=== PATIENT | female | born 1995 | race Caucasian/White ===

== ENCOUNTER 2019-05-29 11:25 | Outpatient (CLI) | payer OTHER ==
--- NOTE | 2019-05-29 14:23 | Ultrasound Report ---
Reason: TWIN , ANTEPARTUM UNSPEC TRI, F/U EXAM 04/19/19 Procedure Date: 05/29/2019 Accession Number: [id number] / [id number] Procedure: US - OB F/U or Repeat CPT Code: Final Report FULL RESULT: EXAM: FOLLOW-UP OBSTETRICAL ULTRASOUND - TWINS EXAM DATE: 05/29/2019 12:50 PM. CLINICAL HISTORY: TWIN , ANTEPARTUM UNSPEC TRI, F/U EXAM 04/19/19. COMPARISON: [facility] [place], [place], [place] ultrasound report 04/19/2019. Prior outside images currently unavailable. TECHNIQUE: Real-time sonographic evaluation of the fetus performed by the event marketing manager. Multiple retail sales representative static images were saved for review. DATING: Established EGA 27 weeks, 0 days with ADRIENNE 08/28/2019 based on assigned dating. EGA 26 weeks, 6 days with ADRIENNE 08/29/2019 based on current ultrasound. GENERAL EVALUATION Dichorionic/diamniotic twin . TWIN A: Cardiac activity: 144 bpm. movement: Visualized. Presentation: Cephalic. Placenta: Posterior position. Amniotic fluid: Normal. MVP 5.9 cm. ANSLEY 16.6 cm. BIOMETRY Bi-Parietal Diameter (BPD): 7 cm, 28 weeks, 1 day Head Circumference (HC): 25.4 cm, 27 weeks, 4 days Abdominal Circumference (AC): 20.5 cm, 25 weeks, 0 days Femur Length (FL): 4.9 cm, 26 weeks, 3 days Composite gestational age 25 weeks, 2 days. Estimated Weight: 873 g, 8.7 th percentile for 27 weeks, 0 days. ANATOMY Nose/lips, profile and cavum septum appear within normal limits. TWIN B: Cardiac activity: 155 bpm. movement: Visualized. Presentation: Breech Placenta: Posterior position. Amniotic fluid: Normal. MVP 5.4 cm. ANSLEY 14.5 cm. BIOMETRY Bi-Parietal Diameter (BPD): 6.8 cm, 27 weeks, 2 days Head Circumference (HC): 25.5 cm, 27 weeks, 5 days Abdominal Circumference (AC): 21.5 cm, 26 weeks, 0 days. Femur Length (FL): 4.9 cm, 26 weeks, 4 days. Composite gestational age 25 weeks, 6 days. Estimated Weight: 940 g, 19.5 th percentile for 27 weeks, 0 days. ANATOMY No abnormality evident on limited views. MATERNAL STRUCTURES No uterine or adnexal abnormality evident. IMPRESSION: 1. Dichorionic/diamniotic twin intrauterine with gestational age 27 weeks, 0 days based on assigned dating. 2. Twin A: - Estimated weight for twin A is at 8.7th percentile relative to assigned dating. anatomy that was not optimally seen per prior outside report appears unremarkable on present exam. 3. Twin B: - Estimated weight at 19.5th percentile relative to assigned dating. 4. EFW difference 7%, favoring Twin B. Twin A is below 10th percentile relative to assigned dating. Recommend followup growth ultrasound. RADIA
== END 2019-05-29 11:26 | disposition home or self-care (01) ==
LOC: DI 11:25
PROVIDERS: ATTEND Obstetrics & Gynecology
DX: O30.042 Twin pregnancy, dichorionic/diamniotic, second trimester (principal); Z3A.27 27 weeks gestation of pregnancy
CPT/HCPCS: 76816

== ENCOUNTER 2019-05-30 08:22 | Outpatient (CLI) | payer OTHER ==
[2019-05-30 09:45] LABS: HGB - HEMOGLOBIN 10.8 g/dL (12.0-16.0); MEAN CORPUSCULAR HEMOGLOBIN 32.3 pg (27.0-31.0); MEAN CORPUSCULAR HGB CONC 33.9 g/dL (32.0-36.0); MEAN CORPUSCULAR VOLUME 95.5 fL (81.0-99.0); RED BLOOD COUNT 3.34 10^6/uL (4.20-5.40); WHITE BLOOD COUNT 9.3 x10^3/uL (4.8-10.8)
== END 2019-05-30 08:23 | disposition home or self-care (01) ==
LOC: LAB 08:22
PROVIDERS: ATTEND Obstetrics & Gynecology
DX: O30.009 Twin pregnancy, unspecified number of placenta and unspecified number of amniotic sacs, unspecified trimester (principal); Z3A.00 Weeks of gestation of pregnancy not specified
CPT/HCPCS: 36415; 82950; 85027; 86850

== ENCOUNTER 2019-06-06 07:31 | Outpatient (CLI) | payer OTHER | END 2019-06-06 07:32 | disposition home or self-care (01) | LOC: LAB 07:31 | PROVIDERS: ATTEND Obstetrics & Gynecology | DX: O99.810 Abnormal glucose complicating pregnancy (principal); Z3A.00 Weeks of gestation of pregnancy not specified | CPT/HCPCS: 36415; 82951; 82952 ==

== ENCOUNTER 2019-07-25 10:15 | Outpatient (CLI) | payer OTHER ==
[2019-07-25 21:35] LABS: TRICHOMONAS VAGINALIS DNA NEGATIVE (NEGATIVE)
== END 2019-07-25 23:59 | disposition home or self-care (01) ==
LOC: LAB.R 10:15
PROVIDERS: ATTEND Obstetrics & Gynecology
DX: Z36.85 Encounter for antenatal screening for Streptococcus B (principal)
CPT/HCPCS: 87491; 87591; 87661; 87797

== ENCOUNTER 2019-07-27 12:28 | Outpatient (CLI) | payer OTHER, MEDICAID ==
--- NOTE | 2019-07-27 15:38 | Ultrasound Report ---
Reason: GROWTH RETARDATION Procedure Date: 07/27/2019 Accession Number: [id number] / [id number] Procedure: US - OB F/U or Repeat CPT Code: Final Report FULL RESULT: EXAM: FOLLOW-UP OBSTETRICAL ULTRASOUND EXAM DATE: 07/27/2019 01:45 PM. CLINICAL HISTORY: GROWTH RETARDATION. COMPARISON: OB F/U OR REPEAT 05/29/2019 11:39 AM. TECHNIQUE: Real-time sonographic evaluation of the fetus performed by the armature tester. Multiple support representative static images were saved for review. DATING: Established EGA 35 weeks 3 days with ADRIENNE 08/28/2019 based on stated by provider. ADRIENNE 08/29/2019 based on ultrasound . EGA 32 weeks 5 days with ADRIENNE 09/09/2019 based on the current ultrasound. GENERAL EVALUATION Twin . Fetus a maternal left. Fetus B maternal right. Cardiac activity: 165 fetus A, 168 fetus B. movement: Visualized. Presentation: Cephalic inferior. Placenta: Posterior position. Amniotic fluid: Subjectively normal. MVP 4.0 cm fetus a and 4.5 cm fetus B. BIOMETRY fetus A, maternal left Bi-Parietal Diameter (BPD): 8.68 cm, 35 weeks 0 days Head Circumference (HC): 31.23 cm, 35 weeks 0 days Abdominal Circumference (AC): 27.38 cm, 31 weeks 3 days Femur Length (FL): 6.45 cm, 33 weeks 2 days Estimated Weight: 2023 g, 2.6 percentile for clinical age. BIOMETRY fetus B Bi-Parietal Diameter (BPD): 8.25 cm, 33 weeks 1 day Head Circumference (HC): 31.73 cm, 35 weeks 5 days Abdominal Circumference (AC): 29.05 cm, 33 weeks 0 days Femur Length (FL): 6.51 cm, 33 weeks 4 days Estimated weight 2205 g, 7.8 percentile. Cord Doppler: Fetus a systolic diastolic ratio 2.41-2.48. IMPRESSION: 1. Twin viable intrauterine . Small for gestational age, using clinical age of 35 weeks 3 days. Fetus A 2.6 percentile. Fetus B 7.8 percentile. RADIA
--- NOTE | 2019-07-27 15:42 | Ultrasound Report ---
Reason: IUGR Procedure Date: 07/27/2019 Accession Number: [id number] / [id number] Procedure: US - OB Biophysical Profile CPT Code: Final Report FULL RESULT: EXAM: BIOPHYSICAL PROFILE EXAM DATE: 07/27/2019 02:22 PM. CLINICAL HISTORY: IUGR. Dichorionic diamniotic twin . COMPARISON: None. TECHNIQUE: Real-time sonographic evaluation of the fetus performed by the compressor engineer. Multiple teleservices representative static images were saved for review. DATING: Established EGA 35 weeks 3 days with ADRIENNE 08/28/2019. GENERAL EVALUATION Twin A Cardiac activity: 130 bpm. movement: Visualized. Presentation: Cephalic. Placenta: position. No evidence for previa or abruption. Amniotic fluid: Subjectively normal MVP 4.3 cm. BIOPHYSICAL PROFILE Breathing = 2 Movement = 2 Tone = 2 Amniotic Fluid = 2 Total 10/13 Twin B Cardiac activity: 152 bpm. movement: Visualized. Presentation: Cephalic. Placenta: Posterior position. No evidence for previa or abruption. Amniotic fluid: Normal. MVP 4.1 cm. BIOPHYSICAL PROFILE Breathing = 2 Movement = 2 Tone = 2 Amniotic Fluid = 2 Total 10/13 IMPRESSION: 1. Biophysical profile score 8 of 8 for both fetus A and fetus B. PERLITA
== END 2019-07-27 12:29 | disposition home or self-care (01) ==
LOC: DI 12:28
PROVIDERS: ATTEND Obstetrics & Gynecology
DX: O30.043 Twin pregnancy, dichorionic/diamniotic, third trimester (principal); O36.5930 Maternal care for other known or suspected poor fetal growth, third trimester, not applicable or unspecified; Z3A.35 35 weeks gestation of pregnancy
CPT/HCPCS: 76816; 76819

== ENCOUNTER 2019-08-03 09:50 | Outpatient (CLI) | payer OTHER, MEDICAID ==
[2019-08-03 10:08] VITALS: BP 128/75
--- NOTE | 2019-08-03 15:10 | PROCEDURE REPORT ---
- HPI Diagnosis/Indication for NST: Multiple gestation Current EDU 08/28/19 Gestation 36 Weeks and 3 Days 1 Para 0 Vital Signs Temperature 98.8 F 08/03/19 10:07 Heart Rate 69 08/03/19 10:07 Respiratory Rate 17 08/03/19 10:07 Blood Pressure 128/75 08/03/19 10:07 O2 Saturation 99 08/03/19 10:07 Temperature 98.8 F 08/03/19 10:07 Heart Rate 69 08/03/19 10:07 Respiratory Rate 17 08/03/19 10:07 Blood Pressure 128/75 08/03/19 10:07 O2 Saturation 99 08/03/19 10:07 - NST Procedure NST Procedure Start Date 08/03/19 Start Time 09:50 Stop Time 10:30 Vibroacoustic Stimulation Used No Patient States Movement Yes A: 135 mod jeevan 15x15 accels no decels B: 140 mod jeevan 15x15 accels no decels TOCO: intermittent - Results and Plan Findings/Impression: 23 yo with emeka twin gestation here for NST Cat I tracing x2 Cont with twice weekly NST and weekly BPP with dopplers IOL at 37+0 wga per MFM
== END 2019-08-03 10:45 | disposition home or self-care (01) ==
LOC: WFO 09:50 → FBP 09:51 → WFO 10:45
PROVIDERS: ATTEND Obstetrics & Gynecology
DX: O30.043 Twin pregnancy, dichorionic/diamniotic, third trimester (principal); Z3A.36 36 weeks gestation of pregnancy
CPT/HCPCS: 59025; 76819

== ENCOUNTER 2019-08-03 11:29 | Outpatient (CLI) | payer OTHER, MEDICAID ==
--- NOTE | 2019-08-04 09:25 | Ultrasound Report ---
Reason: Week BPP TWIN B Procedure Date: 08/03/2019 Accession Number: [id number] / [id number] Procedure: US - OB Biophysical Profile CPT Code: Final Report FULL RESULT: EXAM: BIOPHYSICAL PROFILE EXAM DATE: 08/03/2019 11:36 AM. CLINICAL HISTORY: IUGR. Diamniotic dichorionic twin COMPARISON: OB BIOPHYSICAL PROFILE 07/27/2019 1:49 PM. TECHNIQUE: Real-time sonographic evaluation of the fetus performed by the plating equipment tender. Multiple union representative static images were saved for review. DATING: Established EGA 36 weeks 3 days with ADRIENNE 08/28/2019. GENERAL EVALUATION Twin A maternal left Cardiac activity: 153 bpm. movement: Visualized. Presentation: Cephalic. Placenta: Posterior position. Amniotic fluid: Subjectively normal. . MVP 5.1 cm. BIOPHYSICAL PROFILE Breathing = 2 Movement = 2 Tone = 2 Amniotic Fluid = 2 Total 10/13 GENERAL EVALUATION Twin B maternal right Cardiac activity: 146 bpm. movement: Visualized. Presentation: Cephalic. Placenta: Posterior position. Amniotic fluid: Subjectively normal MVP 4.1 cm. BIOPHYSICAL PROFILE Breathing = 2 Movement = 2 Tone = 2 Amniotic Fluid = 2 Total 10/13 IMPRESSION: 1. Diamniotic dichorionic twin with gestational age 36 weeks 3 days based on established ADRIENNE. 2. Biophysical profile score 8 of 8 for twin A and twin B PERLITA
== END 2019-08-03 11:30 | disposition home or self-care (01) ==
LOC: DI 11:29
PROVIDERS: ATTEND Obstetrics & Gynecology
DX: O30.042 Twin pregnancy, dichorionic/diamniotic, second trimester (principal); Z3A.36 36 weeks gestation of pregnancy
CPT/HCPCS: 76819

== ENCOUNTER 2020-03-11 12:48 | Outpatient (CLI) | payer OTHER, MEDICAID | END 2020-03-11 12:49 | disposition home or self-care (01) | LOC: LAB 12:48 | PROVIDERS: ATTEND Obstetrics & Gynecology | DX: O46.91 Antepartum hemorrhage, unspecified, first trimester (principal) | CPT/HCPCS: 36415; 84702 ==

== ENCOUNTER 2020-04-14 14:02 | Outpatient (CLI) | payer OTHER, MEDICAID | END 2020-04-14 14:03 | disposition home or self-care (01) | LOC: LAB 14:02 | PROVIDERS: ATTEND Midwife | DX: O20.0 Threatened abortion (principal) | CPT/HCPCS: 36415; 84702 ==

== ENCOUNTER 2020-04-30 18:45 | Outpatient (CLI) | payer OTHER, MEDICAID ==
--- NOTE | 2020-05-01 09:44 | Ultrasound Report ---
PROCEDURE: OB First Trimester w/TV INDICATIONS: FIRST TRIMESTER DATING OUTSIDE/PRIOR DATING DATA: Last menstrual period (LMP): 03/13/2020. LMP-based estimated date of delivery (ADRIENNE): 12/11/2020. First dating scan (date and location): 04/30/2020, [facility]. Estimated date of delivery (ADRIENNE) from first dating scan: 12/24/2020. TECHNIQUE: Real-time scanning was performed of the fetus and maternal pelvic organs, with image documentation. Endovaginal scanning was also performed to better visualize the fetus and maternal ovaries. COMPARISON: None FINDINGS: Embryo: There is a very early first trimester intrauterine with crown-rump length and hear t beat. Di Giorgio-rump length measures 0.36 cm, 6 weeks 0 days. Heart rate is 125 bpm. Measurement variability in dating: +/- 4 weeks by LMP, +/- 7 days by mean sac diameter (use before 6 weeks gestation if crown-rump length not able to be measured), +/- 5 days by crown-rump length (6-12 weeks gestation). Small subchorionic hemorrhage measuring 0.8 x 1.0 x 1.5 cm. Maternal organs: Ovaries there is a right luteal cyst measuring 2.5 cm in maximum diameter.. IMPRESSION: Living very early first trimester intrauterine with crown-rump length and heart beat measur ing 6 weeks 0 days. Reviewed by: Ervin Sadler MD on 05/01/2020 9:43 AM PST Approved by: Ervin Sadler MD on 05/01/2020 9:43 AM PST Station ID: [id number]
== END 2020-04-30 18:46 | disposition home or self-care (01) ==
LOC: DI 18:45
PROVIDERS: ATTEND Midwife
DX: Z34.01 Encounter for supervision of normal first pregnancy, first trimester (principal)

== ENCOUNTER 2020-08-07 18:38 | Outpatient (CLI) | payer OTHER, MEDICAID ==
--- NOTE | 2020-08-08 11:08 | Ultrasound Report ---
PROCEDURE: OB Detailed Eval INDICATIONS: SUPERVISION OF NORMAL OUTSIDE/PRIOR DATING DATA: Last menstrual period (LMP): 03/13/2020. LMP-based estimated date of delivery (ADRIENNE): 12/18/2020 First dating scan (date and location): 04/30/2020. Estimated date of delivery (ADRIENNE) from first dating scan: 12/24/2020. The below data below was generated using the ultrasound ADRIENNE of 12/24/2020 TECHNIQUE: Real-time scanning was performed of the fetus, with image documentation and biometric measurements. Endovaginal scanning: Performed COMPARISON: None. FINDINGS: General: A single living intrauterine gestation is present. Presentation: There is interval Placenta: Placental position is posterior/fundal, without previa. Amniotic fluid index: 16.5 cm, 5-24 cm normal. heart rate: 155 beats per minute. Maternal cervical canal: Closed and 4.4 cm long; normal length is 2.5 cm or more. biometrics: Biparietal diameter: 21 weeks 3 days Head circumference: 21 weeks 0 days Abdominal circumference: 20 weeks 1 day Femur length: 20 weeks 4 days Estimated gestational age from initial scan: 20 weeks 1 day. Composite gestational age from present scan: 20 weeks 5 days Estimated weight and percentile: 352 g; 61st percentile Measurement variability in biometric dating: +/- 10 days from 12-20 weeks gestation, +/- 2 weeks from 20-30 weeks gestation, +/- 3 weeks at 30 weeks gestation or later. Anatomic survey: Neuro: Ventricles are normal at less than 10 mm. Cisterna magna is normal at 3-11 mm. Cerebellum i s normal in size and morphology. Nuchal skin fold: Normal at less than 6 mm between 14 and 20 weeks gestational age. Face: Nose and lips, facial profile are normal. Spine: No evidence for spina bifida. Heart: 4-chambered heart is present, with normal ventricular outflow tracts. Diaphragm: Diaphragm is intact. Stomach: Left-sided stomach is present. Echogenic material is noted within the stomach. The stomach is nondistended. Kidneys: No hydronephrosis. Normal is less than 5 mm in 2nd trimester, less than 7 mm in 3rd trimester. Cord: 3 vessel cord has orthotopic insertion. Bladder: Normal in size. Extremities: All 4 extremities are visualized. IMPRESSION: 1. Single living intrauterine with appropriate interval growth. 2. Normal anatomic survey. 3. Nonspecific echogenic material in the stomach without stomach distention. Recommend targeted follo w-up ultrasound of the stomach in 4 weeks to ensure resolution of the finding and to exclude de velopment of stomach distention. Reviewed by: Monica Saini MD, PhD on 08/08/2020 11:06 AM PDT Approved by: Monica Saini MD, PhD on 08/08/2020 11:06 AM PDT Station ID: [id number]
== END 2020-08-07 18:39 | disposition home or self-care (01) ==
LOC: DI 18:38
PROVIDERS: ATTEND Midwife
DX: Z34.02 Encounter for supervision of normal first pregnancy, second trimester (principal)

== ENCOUNTER 2020-08-25 10:07 | Outpatient (CLI) | payer OTHER, MEDICAID ==
[2020-08-25 10:21] VITALS: BP 117/63
[2020-08-25 10:47] LABS: BASOPHILS # (AUTO) 0.1 10^3/uL (0.0-0.1); BASOPHILS % (AUTO) 0.5 %; EOSINOPHILS # (AUTO) 0.2 10^3/uL (0.0-0.7); EOSINOPHILS % (AUTO) 1.9 %; LYMPHOCYTES # (AUTO) 1.5 10^3/uL (1.5-3.5); LYMPHOCYTES % (AUTO) 15.8 %; MEAN CORPUSCULAR HEMOGLOBIN 33.2 pg (27.0-31.0); MEAN CORPUSCULAR HGB CONC 34.2 g/dL (32.0-36.0); MEAN CORPUSCULAR VOLUME 96.9 fL (81.0-99.0); MEAN PLATELET VOLUME 10.6 fL (7.9-10.8); MONOCYTES # (AUTO) 0.6 10^3/uL (0.0-1.0); NEUTROPHILS % (AUTO) 74.2 %; PLT - PLATELET COUNT 196 10^3/uL (130-450); RED BLOOD COUNT 3.92 10^6/uL (4.20-5.40); RED CELL DISTRIBUTION WIDTH 13.2 % (12.0-15.0); WHITE BLOOD COUNT 9.5 x10^3/uL (4.8-10.8)
[2020-08-25 10:49] LABS: BILIRUBIN,URINE NEGATIVE (NEGATIVE); GLUCOSE, URINE (UA) NEGATIVE (NEGATIVE); KETONES,URINE (UA) NEGATIVE (NEGATIVE); LEUKOCYTE ESTERASE, URINE NEGATIVE (NEGATIVE); NITRITE,URINE NEGATIVE (NEGATIVE); OCCULT BLOOD,URINE NEGATIVE (NEGATIVE); PROTEIN,URINE NEGATIVE (NEGATIVE); UROBILINOGEN,URINE 0.2 (NORMAL) E.U./dL (NORMAL)
[2020-08-25 10:50] LABS: CLARITY,URINE CLEAR (CLEAR)
[2020-08-25 11:01] LABS: BACTERIA,URINE Rare /HPF (None Seen); RBC,URINE 0-5 /HPF (0-5); SQUAMOUS EPITHELIAL CELL,UR RARE Squamous (<= Few); WBC,URINE 0-3 /HPF (0-5)
[2020-08-25 11:18] LABS: ALBUMIN 3.3 g/dL (3.2-5.5); ALBUMIN/GLOBULIN RATIO 1.2 (1.0-2.2); BILIRUBIN,TOTAL 0.5 mg/dL (0.2-1.0); CALCIUM 8.7 mg/dL (8.5-10.3); CREATININE 0.5 mg/dL (0.4-1.0); POTASSIUM 3.9 mmol/L (3.5-5.0); TOTAL PROTEIN 6.1 g/dL (6.7-8.2)
--- NOTE | 2020-08-25 11:39 | PROVIDER PROGRESS NOTE ---
- HPI Chief Complaint: symptoms Current : Current EDU 12/24/20 Gestation 22 Weeks and 5 Days 3 Para 1 Vital Signs Temperature 98.1 F 08/25/20 10:20 Heart Rate 85 08/25/20 10:20 Respiratory Rate 15 08/25/20 10:20 Blood Pressure 117/63 08/25/20 10:20 O2 Saturation 100 08/25/20 10:20 Temperature 98.1 F 08/25/20 10:20 Heart Rate 85 08/25/20 10:20 Respiratory Rate 15 08/25/20 10:20 Blood Pressure 117/63 08/25/20 10:20 O2 Saturation 100 08/25/20 10:20 - Exam 25yo at 23 weeks presented for Increased urinary frequency that started yesterday and has some low back pain. Patient reports good movement. Patient denies SROM, vaginal bleeding or contractions. O-117/63m Pulse is 85, R=15, General: Patient does not appear to be in any acute distress. Chest: Clear to auscultation. Good breath sounds in all garcia. No CVA tenderness. Abdomen: Soft, non-tender to palpation. Gravid. Extremities: No edema, no calf tenderness. Neuro: DTR's +2/+4. FHT's 150's by doppler. No contractions seen on [place] Urine has Rare bacteria, WBC0-3, RBC 0-5. BUN is14, Creatinine is 0.5 WBC is 9.5 HGB is 13.0, HCT is 38, Platelets are 196. Discussed she can drink Cranberry juice and stay well hydrated. Discussed she can take Tylenol for pain. Urine culture is pending and she will be called with results. Discussed not using antibiotics until culture is back, patient agreed with that plan. Discussed not using over the counter medications for urinary discomfort. There was not an NST performed due to IUP 22 07/12. [place] was monitored for cont ractions. - Procedures NST Procedure: NST Procedure Start Time 09:50 Stop Time 10:30
== END 2020-08-25 11:35 | disposition home or self-care (01) ==
LOC: WFO 10:07 → FBP 10:10 → WFO 11:35
PROVIDERS: ATTEND Obstetrics & Gynecology
DX: O99.891 Other specified diseases and conditions complicating pregnancy (principal); R35.0 Frequency of micturition; M54.5 Low back pain; Z3A.22 22 weeks gestation of pregnancy
CPT/HCPCS: 36415; 80053; 81001; 85025; 87086; 99214; 99215

== ENCOUNTER 2020-09-04 18:48 | Outpatient (CLI) | payer OTHER, MEDICAID ==
--- NOTE | 2020-09-05 12:29 | Ultrasound Report ---
PROCEDURE: OB F/U or Repeat INDICATIONS: SUPERVISION OF OUTSIDE/PRIOR DATING DATA: Last menstrual period (LMP): 03/13/2020. LMP-based estimated date of delivery (ADRIENNE): 12/18/2020. First dating scan (date and location): 04/30/2020. Estimated date of delivery (ADRIENNE) from first dating scan: 12/24/2020. The below data below was generated using the 12/24/2020 ADRIENNE of first OB ultrasound TECHNIQUE: Real-time scanning was performed of the fetus, with image documentation and biometric measurements. Endovaginal scanning: Not needed COMPARISON: All prior OB ultrasound studies for this . FINDINGS: General: A single living intrauterine gestation is present. Presentation: Breech Placenta: Placental position is fundal, without previa. Amniotic fluid index: 17.6 cm, normal for gestational age. heart rate: 141 beats per minute. Maternal cervical canal: 4.0 cm long; normal length is 2.5 cm or more. biometrics: Composite gestational age from present scan: 24 weeks 1 day Measurement variability in biometric dating: +/- 10 days from 12-20 weeks gestation, +/- 2 weeks from 20-30 weeks gestation, +/- 3 weeks at 30 weeks gestation or more. Other: Prior OB ultrasound had identified echogenic debris within the gastric lumen. This is now abs ent.. IMPRESSION: Resolution of echogenic debris from within the gastric lumen. Breech presentation. Normal amniotic fluid volume. Viable gestation with cardiac activity observed. Reviewed by: Elijah Mon MD on 09/05/2020 12:28 PM PDT Approved by: Elijah Mon MD on 09/05/2020 12:28 PM PDT Station ID: [id number]
== END 2020-09-04 18:49 | disposition home or self-care (01) ==
LOC: DI 18:48
PROVIDERS: ATTEND Midwife
DX: Z34.02 Encounter for supervision of normal first pregnancy, second trimester (principal)

== ENCOUNTER 2021-01-07 12:56 | Emergency (ER) | payer MEDICAID, OTHER ==
[2021-01-07] MEDS ORDERED: SODIUM CHLORIDE 0.9% 1,000 ML IV STA ×2 (13:24)
[2021-01-07] MEDS ORDERED: ACETAMINOPHEN 1,000 MG/100 ML 100 ML IV ONE (13:34)
--- NOTE | 2021-01-07 13:35 | ED Physician Documentation ---
History of Present Illness - Stated complaint Stated Complaint: FEVER/LOW BP/HIGH PULSE - Chief complaint Chief Complaint: Abd Pain - History obtained from History obtained from: Patient, Family - History of Present Illness Timing: Last night Pain level max: 5 Pain level now: 5 - Additonal information Additional information: Patient is a 25-year-old female, 3 para 3, delivered about 9 days ago, normal spontaneous vaginal delivery. Patient was group B strep positive but did not have antibiotics. She had been doing well until she developed lower abdominal pain last night and states that she had a fever, T-max 101 at home. She talked to her v belt inspector who referred her here for evaluation. She states that her vaginal discharge has stopped, had a small amount of bleeding last night. Nothing makes this better or worse. No cough, congestion. No flank pain. No rhinorrhea. No dysuria. Review of Systems Constitutional: reports: Fever (101) Nose: denies: Rhinorrhea / runny nose, Congestion GI: denies: Vomiting, Diarrhea : denies: Dysuria, Frequency, Hesitancy, Now EGA Skin: denies: Rash Musculoskeletal: denies: Neck pain, Back pain Neurologic: denies: Headache, Head injury PD PAST MEDICAL HISTORY - Past Medical History Cardiovascular: None Respiratory: None Neuro: None Endocrine/Autoimmune: None GI: GERD (during ) : None Musculoskeletal: None Derm: None - Present Medications Home Medications: Ambulatory Orders Medication Instructions Recorded Confirmed Cefdinir 300 mg PO BID #14 cap 01/07/21 - Allergies Allergies/Adverse Reactions: Allergies Allergy/AdvReac Type Severity Reaction Status Date / Time No Known Drug Allergies Allergy Verified 01/07/21 13:00 - Social History Smoking Status: Never smoker PD ED PE NORMAL - Vitals Vital signs reviewed: Yes - General General: Alert and oriented X 3, No acute distress - HEENT HEENT: Moist mucous membranes - Neck Neck: Supple, no meningeal sign - Cardiac Cardiac: RRR, Strong equal pulses - Respiratory Respiratory: No respiratory distress, Clear bilaterally - Abdomen Abdomen: Soft, Non distended, Other (shama mild suprapubic TTP. no peritoneal signs.) - Female Female : Pt declined - Back Back: No CVA TTP, No spinal TTP - Derm Derm: Warm and dry - Extremities Extremities: No edema, No calf tenderness / cord - Neuro Neuro: Alert and oriented X 3 - Psych Psych: Normal mood, Normal affect Results - Vitals Vitals: Vital Signs - 24 hr 01/07/21 01/07/21 01/07/21 13:00 15:06 17:00 Temperature 37.6 C 37.0 C Heart Rate 128 H 93 100 Respiratory 18 18 19 Rate Blood Pressure 107/70 103/54 L 120/80 O2 Saturation 97 99 98 01/07/21 17:25 Temperature 37.3 C Heart Rate 96 Respiratory 16 Rate Blood Pressure 119/79 O2 Saturation 96 Oxygen O2 Source Room air - Labs Labs: Laboratory Tests 01/07/21 01/07/21 01/07/21 13:31 13:46 13:46 WBC 15.0 H RBC 4.69 Hgb 14.2 Hct 43.2 MCV 92.1 MCH 30.3 MCHC 32.9 RDW 13.2 Plt Count 324 MPV 9.8 Neut # (Auto) 13.7 H Lymph # (Auto) 0.6 L Rankin # (Auto) 0.6 Eos # (Auto) 0.0 Baso # (Auto) 0.1 Absolute Nucleated RBC 0.00 Nucleated RBC % 0.0 PT 13.9 H INR 1.2 APTT 37.7 H Sodium Potassium Chloride Carbon Dioxide Anion Gap BUN Creatinine Estimated GFR (MDRD) Glucose Lactic Acid Calcium Total Bilirubin AST ALT Alkaline Phosphatase Total Protein Albumin Globulin Albumin/Globulin Ratio Lipase Urine Color YELLOW Urine Clarity CLEAR Urine pH 7.0 Ur Specific [place] 1.010 Urine Protein NEGATIVE Urine Glucose (UA) NEGATIVE Urine Ketones NEGATIVE Urine Occult Blood LARGE H Urine Nitrite NEGATIVE Urine Bilirubin NEGATIVE Urine Urobilinogen 0.2 (NORMAL) Ur Leukocyte Esterase SMALL H Urine RBC 0-5 Urine WBC 6-10 H Ur Squamous Epith Cells NONE SEEN Urine Bacteria Rare Ur Microscopic Review INDICATED Urine Culture Comments INDICATED Nasal Adenovirus (PCR) Nasal B. parapertussis DNA (PCR) Nasal Coronavir 229E PCR Nasal Coronavir HKU1 PCR Nasal Coronavir NL63 PCR Nasal Coronavir OC43 PCR Nasal Enterovir/Rhinovir PCR Nasal Influenza B PCR Nasal Influenza A PCR Nasal Parainfluen 1 PCR Nasal Parainfluen 2 PCR Nasal Parainfluen 3 PCR Nasal Parainfluen 4 PCR Nasal RSV (PCR) Nasal B.pertussis DNA PCR Nasal C.pneumoniae (PCR) [place] Human Metapneumo PCR Nasal M.pneumoniae (PCR) Nasal SARS-CoV-2 (PCR) 01/07/21 01/07/21 01/07/21 13:46 13:46 13:54 WBC RBC Hgb Hct MCV MCH MCHC RDW Plt Count MPV Neut # (Auto) Lymph # (Auto) Rankin # (Auto) Eos # (Auto) Baso # (Auto) Absolute Nucleated RBC Nucleated RBC % PT INR APTT Sodium 136 Potassium 3.4 L Chloride 103 Carbon Dioxide 23 Anion Gap 10.0 BUN 12 Creatinine 0.8 Estimated GFR (MDRD) 87 L Glucose 107 H Lactic Acid 1.5 Calcium 8.8 Total Bilirubin 0.7 AST 22 ALT 28 Alkaline Phosphatase 92 Total Protein 7.4 Albumin 3.7 Globulin 3.7 Albumin/Globulin Ratio 1.0 Lipase 49 Urine Color Urine Clarity Urine pH Ur Specific [place] Urine Protein Urine Glucose (UA) Urine Ketones Urine Occult Blood Urine Nitrite Urine Bilirubin Urine Urobilinogen Ur Leukocyte Esterase Urine RBC Urine WBC Ur Squamous Epith Cells Urine Bacteria Ur Microscopic Review Urine Culture Comments Nasal Adenovirus (PCR) NOT DETECTED Nasal B. parapertussis DNA (PCR) NOT DETECTED Nasal Coronavir 229E PCR NOT DETECTED Nasal Coronavir HKU1 PCR NOT DETECTED Nasal Coronavir NL63 PCR NOT DETECTED Nasal Coronavir OC43 PCR NOT DETECTED Nasal Enterovir/Rhinovir PCR NOT DETECTED Nasal Influenza B PCR NOT DETECTED Nasal Influenza A PCR NOT DETECTED Nasal Parainfluen 1 PCR NOT DETECTED Nasal Parainfluen 2 PCR NOT DETECTED Nasal Parainfluen 3 PCR NOT DETECTED Nasal Parainfluen 4 PCR NOT DETECTED Nasal RSV (PCR) NOT DETECTED Nasal B.pertussis DNA PCR NOT DETECTED Nasal C.pneumoniae (PCR) NOT DETECTED [place] Human Metapneumo PCR NOT DETECTED Nasal M.pneumoniae (PCR) NOT DETECTED Nasal SARS-CoV-2 (PCR) NOT DETECTED - Rads (name of study) pelvic US Radiology: Final report received, EMP read contemporaneously, See rad report PD MEDICAL DECISION MAKING - ED course Complexity details: reviewed results, re-evaluated patient, considered differential, d/w patient, d/w family, d/w sap solution manager consultant ED course: Patient is a 25-year-old female who reports fever at home last night. No fevers here. Abdominal pain resolved in the emergency department. Abdomen is soft, nontender nondistended on serial exam. White blood cell count is mildly elevated, but still within range for . She does have a small UTI and we will place her on antibiotics for this. Dr. Sweeney, FOREST RANGER was also consulted and came and evaluated the patient. The patient is comfortable going home at this time and will return should her pain worsen or fevers increase. No evidence of mastitis. Breast-feeding easily. Tolerating p.o. without difficulty. Tachycardia resolved. Patient and family counseled regarding signs and symptoms for which I believe and urgent re-evaluation would be necessary. Patient with good understanding of and agreement to plan and is comfortable going home at this time This document was made in part using voice recognition software. While efforts are made to proofread this document, sound alike and grammatical errors may occur. IMPRESSION: Enlarged, heterogeneous uterus with complex fluid within the endometrial cavity and associated hyperemia of the myometrium. Findings may be in part due to recent state; however, given reported history of fever and pain, findings may represent endometritis. Intrauterine hemorrhagic products not excluded. No sonographic evidence to suggest retained products of conception. Departure - Departure Disposition: 01 Home, Self Care Clinical Impression: Fever Qualifiers: Fever type: unspecified Qualified Code(s): R50.9 - Fever, unspecified UTI (urinary tract infection) Qualifiers: Urinary tract infection type: acute cystitis Hematuria presence: without hematuria Qualified Code(s): N30.00 - Acute cystitis without hematuria Condition: Good Instructions: ED UTI Cystitis Female Follow-Up: your,doctor within 1 week [Other] Prescriptions: Cefdinir 300 mg PO BID #14 cap Comments: Take all antibiotics until gone. Return if you worsen. Please follow-up with your doctor for further care. Return if you develop worsening fevers or pain. Prescriptions were sent to the [facility] pharmacy. Discharge Date/Time: 01/07/21 17:26
[2021-01-07 13:54] LABS: BASOPHILS # (AUTO) 0.1 10^3/uL (0.0-0.1); BASOPHILS % (AUTO) 0.4 %; HCT - HEMATOCRIT 43.2 % (37.0-47.0); HGB - HEMOGLOBIN 14.2 g/dL (12.0-16.0); LYMPHOCYTES # (AUTO) 0.6 10^3/uL (1.5-3.5); MEAN CORPUSCULAR HEMOGLOBIN 30.3 pg (27.0-31.0); MEAN CORPUSCULAR HGB CONC 32.9 g/dL (32.0-36.0); MEAN CORPUSCULAR VOLUME 92.1 fL (81.0-99.0); MEAN PLATELET VOLUME 9.8 fL (7.9-10.8); MONOCYTES # (AUTO) 0.6 10^3/uL (0.0-1.0); MONOCYTES % (AUTO) 3.9 %; NEUTROPHILS # (AUTO) 13.7 10^3/uL (1.5-6.6); PLT - PLATELET COUNT 324 10^3/uL (130-450); RED BLOOD COUNT 4.69 10^6/uL (4.20-5.40); RED CELL DISTRIBUTION WIDTH 13.2 % (12.0-15.0)
[2021-01-07 13:59] LABS: BILIRUBIN,URINE NEGATIVE (NEGATIVE); GLUCOSE, URINE (UA) NEGATIVE (NEGATIVE); KETONES,URINE (UA) NEGATIVE (NEGATIVE); LEUKOCYTE ESTERASE, URINE SMALL (NEGATIVE); NITRITE,URINE NEGATIVE (NEGATIVE); OCCULT BLOOD,URINE LARGE (NEGATIVE); PROTEIN,URINE NEGATIVE (NEGATIVE); UROBILINOGEN,URINE 0.2 (NORMAL) E.U./dL (NORMAL)
[2021-01-07 14:01] LABS: INR 1.2 (0.8-1.2); PT - PROTHROMBIN TIME 13.9 secs (9.9-12.6)
[2021-01-07 14:02] LABS: CLARITY,URINE CLEAR (CLEAR)
[2021-01-07 14:08] LABS: PARTIAL THROMBOPLASTIN TIME 37.7 secs (24.9-33.3)
[2021-01-07 14:12] LABS: RBC,URINE 0-5 /HPF (0-5)
[2021-01-07 14:13] LABS: BACTERIA,URINE Rare /HPF (None Seen); SQUAMOUS EPITHELIAL CELL,UR NONE SEEN (<= Few)
[2021-01-07 14:24] LABS: ALBUMIN 3.7 g/dL (3.2-5.5); BILIRUBIN,TOTAL 0.7 mg/dL (0.2-1.0); CALCIUM 8.8 mg/dL (8.5-10.3); CREATININE 0.8 mg/dL (0.4-1.0); POTASSIUM 3.4 mmol/L (3.5-5.0); TOTAL PROTEIN 7.4 g/dL (6.7-8.2)
--- NOTE | 2021-01-07 14:59 | Ultrasound Report ---
PROCEDURE: Pelvic Complete INDICATIONS: lower abd pain, fever, s/p delivery 9 days ago TECHNIQUE: Real-time transabdominal scanning was performed of the pelvic organs, with image documentation. COMPARISON: None. FINDINGS: Uterus: Uterus is enlarged in size at 13.8 x 7.3 x 10.6 cm. Uterine volume measures 559 mL. Endomet rium is difficult to define. There is mild myometrial vascularity. Heterogeneous fluid collection not ed within the endometrial cavity measuring approximately 24 mL in size. No vascular component is iden tified within the endometrial cavity or within this complex fluid collection. Ovaries: Right ovary is not well visualized. Right adnexa is normal in appearance. Left ovary/adnexa is normal in appearance. Left ovary measures 1.9 x 1.7 x 1.4 cm with ovarian volume of 2.4 mL. Other: No free pelvic fluid. IMPRESSION: Enlarged, heterogeneous uterus with complex fluid within the endometrial cavity and associated hypere hiwot of the myometrium. Findings may be in part due to recent state; however, given reporte d history of fever and pain, findings may represent endometritis. Intrauterine hemorrhagic products n ot excluded. No sonographic evidence to suggest retained products of conception. Reviewed by: Quintin Kauffman MD on 01/07/2021 2:58 PM PDT Approved by: Quintin Kauffman MD on 01/07/2021 2:58 PM PDT Station ID: [id number]
[2021-01-07 15:26] LABS: B. PARAPERTUSSIS- RESP PCR PAN NOT DETECTED; B. PERTUSSIS- RESP PCR PANEL NOT DETECTED; C. PNEUMONIAE- RESP PCR PANEL NOT DETECTED; CORONAVIRUS 229E-RESP PCR NOT DETECTED; CORONAVIRUS HKU1-RESP PCR NOT DETECTED; CORONAVIRUS NL63-RESP PCR NOT DETECTED; CORONAVIRUS OC43-RESP PCR NOT DETECTED; HUMAN METAPNEUMOVIRUS NOT DETECTED; INFLUENZA A- RESP PCR PANEL NOT DETECTED; INFLUENZA B - RESP PCR PANEL NOT DETECTED; M. PNEUMONIAE- RESP PCR PANEL NOT DETECTED; PARAINFLUENZA VIRUS 1 NOT DETECTED; PARAINFLUENZA VIRUS 2 NOT DETECTED; PARAINFLUENZA VIRUS 3 NOT DETECTED; PARAINFLUENZA VIRUS 4 NOT DETECTED; RHINOVIRUS/ENTEROVIRUS NOT DETECTED; RSV- RESP PCR PANEL NOT DETECTED; SARS-CoV-2 -RESP PCR PANEL NOT DETECTED
[2021-01-07] MEDS ORDERED: cefTRIAXone 1 GM VIAL IVP STA (16:44)
[2021-01-07 17:25] VITALS: BP 119/79
== END 2021-01-07 17:26 | disposition home or self-care (01) ==
LOC: ED 12:56
DX: O86.4 Pyrexia of unknown origin following delivery (principal); O86.20 Urinary tract infection following delivery, unspecified; N39.0 Urinary tract infection, site not specified; Z20.822 Contact with and (suspected) exposure to COVID-19
CPT/HCPCS: 0202U; 36415; 76856; 80053; 81001; 83605; 83690; 85025; 85610; 85730; 87040; 87086; 96365; 96375; 99284; J0131; 81003